=== PATIENT | male | born 1965 | race Caucasian/White ===

== ENCOUNTER 2018-05-02 16:16 | Emergency (ER) | payer MEDICAID ==
[~2018-05-02] VITALS: Ht 172.7 cm; Wt 95.0 kg
[2018-05-02 16:40] VITALS: Ht 172.7 cm; Wt 95.0 kg
[2018-05-02] MEDS ORDERED: ACYC800T5 PO (17:21)
--- NOTE | 2018-05-02 17:24 | ERD ---
ER Documentation Chief Complaint Chief Complaint pt is bib family with c/o right facial droop, eye dryness x 2 days, HPI 53-year-old male brought in by family complaining of right-sided facial droop as well as high blood pressure. He was seen in the clinic today and was referred here for his high blood pressure. He states that 2 days ago, he started noticing some weakness in the right side of his face with pain at the right anterior ear area. He has been unable to fully close his right eye. He was unaware of his high blood pressure until he was seen in the clinic today. However he denies any significant headaches, vision disturbance, other focal weakness or numbness. He denies any chest pain or shortness of breath. No fevers or chills. No ear pain. ROS All systems reviewed and are negative except as per history of present illness. Medications Home Meds Active Scripts Acyclovir* (Zovirax*) 800 Mg Tablet, 400 MG PO 5 TIMES DAILY for 7 Days, TAB Prov:BEAN DAN MD 05/02/18 Allergies Allergies: Coded Allergies: No Known Allergy (Unverified , 05/02/18) PMhx/Soc Medical and Surgical Hx: pt denies Medical Hx, pt denies Surgical Hx Hx Alcohol Use: No Hx Substance Use: No Hx Tobacco Use: No Smoking Status: Never smoker FmHx Family History: No diabetes Physical Exam Vitals Vital Signs Date Temp Pulse Resp B/P (MAP) Pulse Ox O2 O2 Flow FiO2 Time Delivery Rate 05/02/18 68 18 167/98 98 17:28 (121) 05/02/18 98.2 60 18 172/102 98 16:40 (125) Physical Exam Const: No acute distress, well-appearing, nontoxic Head: Atraumatic Eyes: Normal Conjunctiva PERRLA, EOMI, no nystagmus ENT: Normal External Ears, Nose and Mouth. Neck: Full range of motion. No meningismus. Resp: Clear to auscultation bilaterally Cardio: Regular rate and rhythm, no murmurs Abd: Soft, non tender, non distended. Normal bowel sounds Skin: No petechiae or rashes Ext: No cyanosis, or edema Neur: Awake and alert, oriented, normal speech, right facial nerve palsy, all other cranial nerves intact. Strength and sensations intact in all 4 extremities Psych: Normal Mood and Affect Procedures/MDM Initial Nursing notes reviewed. Previous Medical Records requested via the Electronic Health Record. EMERGENCY DEPARTMENT COURSE / MEDICAL DECISION MAKING: Patient presents with complaints of high blood pressure, asymptomatic, as well as 3 days of right facial droop. 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 Patient's blood pressure was elevated (>120/80) but appears stable without evidence of hypertensive emergency or urgency. I explained to the patient the treatment of Pfeiffer's palsy and prognosis. the patient was counseled about the risks of hypertension and urged to pursue outpatient monitoring and therapy within a week with their primary care physician. He has already been prescribed lisinopril and amlodipine, as well as acyclovir and prednisone. Return precautions given. Departure Diagnosis: Primary Impression: Pfeiffer's palsy Additional Impression: Asymptomatic hypertension Condition: Stable Patient Instructions: Pfeiffer's Palsy, High Blood Pressure (Hypertension) BEAN DAN MD May 02, 2018 17:24
[2018-05-02 17:28] VITALS: BP 167/98; PULSE 68; RESP 18
== END 2018-05-03 06:32 | disposition home or self-care (01) ==
LOC: E/R 16:16
DX: G51.0 Bell's palsy (principal); I10 Essential (primary) hypertension
CPT/HCPCS: 99283